=== PATIENT | male | born 1965 | race African-American/Black ===

== ENCOUNTER 2017-11-04 23:40 | Observation (INO) | payer OTHER ==
[2017-11-05] MEDS ORDERED: Ondansetron HCl/PF 4 MG/2 ML Vial ONE (00:05)
[2017-11-05 00:42] LABS: #Lymphocytes 1.3 thou/uL (1.20-3.40); #Monocytes 0.2 thou/uL (0.11-0.59); %Basophils 0.6 % (0.0-1.0); %Eosinophils 0.8 % (0.0-10.0); %Lymphocytes 23.5 % (21.0-51.0); %Neutrophils 71.1 % (42.0-75.0); Hemoglobin 16.8 g/dL (14.0-18.0); Mean Corpuscular HGB CONC 31.7 g/dL (32.0-36.0); Mean Corpuscular Hemoglobin 29.3 pg (27.0-31.0); Mean Corpuscular Volume 92.4 fl (80.0-94.0); Mean Platelet Volume 8.3 fL (7.4-10.4); Platelet Count 189 thou/uL (130-400); RBC Distribution Width 14.1 % (11.5-14.5); Red Blood Cell (RBC) Count 5.73 mill/uL (4.70-6.10); White Blood Cell (WBC) Count 5.6 thou/uL (4.8-10.8)
[2017-11-05 00:48] LABS: Prothrombin Time 12.9 SEC (12.0-14.7)
[2017-11-05 00:49] LABS: PTT 28.9 SEC (22.9-36.1)
[2017-11-05 01:04] LABS: ALT (SGPT) 29 U/L (8-55); AST (SGOT) 21 U/L (5-34); Albumin 4.1 g/dL (3.5-5.0); Alkaline Phosphatase 54 U/L (40-150); Anion Gap 13 mmol/L (10-20); BUN (Urea Nitrogen) 13 mg/dL (8.9-20.6); Bilirubin, Total 0.8 mg/dL (0.2-1.2); CK (CPK) 325 U/L (30-200); Calc. Creatinine Clearance 0 mL/min (70-130); Calcium 9.4 mg/dL (7.8-10.44); Carbon Dioxide 30 mmol/L (22-29); Chloride 102 mmol/L (98-107); Estimated GFR-MDRD 63; Globulin 3.5 g/dL (2.4-3.5); Glucose 124 mg/dL (70-105); Potassium 3.5 mmol/L (3.5-5.1); Protein, Total 7.6 g/dL (6.0-8.3); Sodium 141 mmol/L (136-145)
[2017-11-05 01:06] LABS: CKMB 4.3 ng/mL (0-6.6); Troponin I 0.095 ng/mL (< 0.028)
[2017-11-05] MEDS ORDERED: Atorvastatin Calcium 20 MG TAB PO SCH ×2 (03:21→21:00)
[2017-11-05] MEDS ORDERED: Ondansetron ODT 4 MG TAB PO PRN (03:21)
[2017-11-05] MEDS ORDERED: hydrALAZINE 20 MG/ML VIAL SLOW IVP PRN (03:21)
[2017-11-05] MEDS ORDERED: HYDROcodone/Acetaminophen 5/325 mg Tablet PO PRN (03:21)
[2017-11-05] MEDS ORDERED: Acetaminophen 325 MG TAB PO PRN (03:21)
[2017-11-05] MEDS ORDERED: Enoxaparin Sodium 40 MG/0.4 ML SYRINGE SC SCH ×3 (03:21→21:00)
[2017-11-05 04:56] LABS: Cardiac Risk 6.1 (Less than 4.5)
[2017-11-05 05:01] LABS: CKMB 4.7 ng/mL (0-6.6); Troponin I 0.103 ng/mL (< 0.028)
[2017-11-05 05:11] VITALS: BMI 49.9
--- NOTE | 2017-11-05 05:33 | HP ---
DATE OF ADMISSION: 11/05/2017 TIME OF SERVICE: 0315 hours PRIMARY CARE PHYSICIAN: Mart[facility]nez in [place]. CHIEF COMPLAINT: Right-sided weakness and chest pain. HISTORY OF PRESENT ILLNESS: Mr. Alston is a 51-year-old -[place] male with history of severe obesity, hypertension, BPH, gout, CHF and possible atrial fibrillation and obstructive sleep apnea. The patient was in normal state of health until about 9:00 on 11/04/2017. At that time, he developed right arm and leg weakness. He had gotten up to try to walk across his house and then extremely dif ficult to get around. He said they were numb and would not move right in the emergency department. By arrival around 2300, the symptoms had resolved. In passing, he also said he has some chest pain that he describes as fullness that was relieved by be lching present around the same time. When he belch, it went away and came back several hours later a nd bounced again, it resolved. He has no weakness, numbness, tingling or difficulty walking now, he has no further chest pain or discomfort. Review of his chart does show he had an echocardiogram in 08/2016 that showed grade 1/3 diastolic dys function, EF 40-45% and inferior and inferolateral wall hypokinesis. PAST MEDICAL HISTORY: 1. Hypertension. 2. Possible atrial fibrillation. 3. BPH. 4. Gout. 5. CHF 6. Severe obesity. 7. Obstructive sleep apnea. PAST SURGICAL HISTORY: Include renal stone removal in 08/2016. HOME MEDICATIONS: 1. Coreg 25 mg p.o. b.i.d. 2. Amlodipine 5 mg p.o. b.i.d. 3. Flomax 0.4 mg p.o. at bedtime. 4. Allopurinol 300 mg daily. 5. Digoxin 0.125 mg p.o. daily. He said he takes it for blood pressure. ALLERGIES: NKDA. FAMILY HISTORY: Negative for premature coronary artery disease. His sister had heart problems under the age of 50. His mom had a heart attack in her 60s. SOCIAL HISTORY: Negative for habits x3. REVIEW OF SYSTEMS: A 10-point review of systems was performed and was negative for all systems excep t as stated as per HPI. PHYSICAL EXAMINATION: VITAL SIGNS: Temperature 99.0, pulse 86, blood pressure 131/91, respiratory 20, satting 97% on room air. Weight is 370 pounds. GENERAL: He is awake. He is alert. He is oriented x3. He is a well-developed, well-nourished tyler rely obese -[place] male appears to be in no acute distress. HEENT: Normocephalic and atraumatic. His pupils are equal, round, react to light bilaterally. Muco us membranes are moist. There is no visible lesion, no thrush. NECK: Supple, with no lymphadenopathy, no JVD, no thyromegaly. Normal carotid upstroke. I do not a ppreciate any bruits. LUNGS: Clear. He has no wheezes, no rales, or no rhonchi. Good air movement. Symmetric chest excu rsion. CARDIOVASCULAR: He has a normal S1, S2. No S3, S4. No audible murmurs. ABDOMEN: Soft, is obese. It is nontender. I cannot palpate his internal organs. EXTREMITIES: Show no signs of clubbing. He has got nonpitting edema of both lower extremities up to about the level of the knee. He has got 1+ dorsalis pedis and posterior tibial pulses bilaterally. SKIN: Otherwise, warm, moist, and well perfused. He has no other rashes or lesions. MUSCULOSKELETAL: Normal to inspection. No inflamed joints. No palpable effusions. NEUROLOGIC: Cranial nerves II through XII grossly intact. He has 5/5 strength in all 4 extremities. Sensation is intact. He has no focal deficits. His speech is normal. LABORATORY DATA: Sodium 141, potassium 3.5, chloride 102, bicarbonate 30, BUN 13, creatinine 1.43, g lucose 124, calcium 9.4. Liver functions are completely within normal limits. CBC showed a white co unt of 5.6, hemoglobin 16.8, hematocrit 53.0 and platelet count was 189,000. CK total was 325, CK-MB 4.3, troponin I indeterminate at 0.095. INR is 1.0 and BNP was slightly elevated at 158. RADIOGRAPHIC STUDIES: CT scan of the brain without contrast is negative for acute intracranial patho logy and chest x-ray showed no acute intrathoracic pathology. ASSESSMENT AND PLAN: 1. Transient ischemic attack. The patient had weakness and numbness to the right upper and right lo wer extremity that resolved spontaneously about 2 hours after started. We will place in observation, I did attempt to order an MRI/MRA, however, due to his weight, he is unable to get an MRI here. We will do a CT angiogram and perfusion study in the morning when the routine gets in. The patient will get a fasting lipid profile. I have started him on full aspirin daily and atorvastatin, and I have asked Dr. Up, Neurology to evaluate. PT, OT and ST consults have been entered. There does not trudy ear to have any difficulties at present. 2. Hypertension. Continue his home medications. We will add p.r.n. labetalol as needed. 3. Gout, on allopurinol. 4. Congestive heart failure, chronic combined diastolic and systolic, without acute exacerbation. 5. Severe obesity. 6. Obstructive sleep apnea: The patient does not know CPAP settings. 7. BPH, on Flomax. 8. Possible atrial fibrillation: The patient does not have any recollection of irregular rhythm or atrial fibrillation, but he is on Digoxin 0.125 mg daily. We have to review his chart. 9. History of nephrolithiasis, not active at present.
[2017-11-05] MEDS: Nitroglycerin 2% Ointment 1 INCH/1 GM Packet TOP SCH ×2 (06:14→14:14)
--- NOTE | 2017-11-05 06:56 | CT ---
HEAD CT WITHOUT CONTRAST: 11/05/2017 HISTORY: Right-sided weakness with headache. COMPARISON: None. TECHNIQUE: Serial axial CT imaging at 5 mm intervals, from the vertex through the skull base, without contrast. FINDINGS: The imaged paranasal sinuses/mastoid air cells are well aerated. No displaced calvarial fracture. N o intracranial hemorrhage, midline shift, mass effect, or ventricular enlargement. IMPRESSION: No intracranial hemorrhage or displaced calvarial fracture. POS: DARNELL
[2017-11-05 07:38] LABS: CKMB 4.4 ng/mL (0-6.6); Troponin I 0.075 ng/mL (< 0.028)
--- NOTE | 2017-11-05 07:44 | RAD ---
CHEST 1 VIEW: Date: HISTORY: Weakness. Dyspnea. COMPARISON: 11/20/16. FINDINGS: Cardiac silhouette is magnified and enlarged. Pulmonary vasculature is now engorged with patchy bilat eral perihilar and bibasilar infiltrates. Mediastinum is midline. No lobar consolidation or pneumotho rax are apparent. personnel monitor leads overlie the chest. IMPRESSION: Cardiomegaly. Pulmonary vascular congestion. POS: TPC
[2017-11-05 08:17] LABS: CKMB 4.5 ng/mL (0-6.6); Troponin I 0.085 ng/mL (< 0.028)
--- NOTE | 2017-11-05 08:56 | ULT ---
CAROTID ULTRASOUND: History: Right lower extremity weakness. Technique: Multiplanar grayscale and color doppler images were obtained in a carotid ultrasound. Spec tral analysis of the doppler waveforms were performed. FINDINGS: No significant plaque is seen in either common or internal carotid artery. The doppler waveforms are normal bilaterally. Peak systolic velocity in the right ICA is 38 cm/sec. Peak systolic velocity in the right CCA is 86 c m/sec. The right ICA/CCA ratio is 0.4. Peak systolic velocity in the left ICA is 49 cm/sec. Peak systolic velocity in the left CCA is 89 cm/ sec. The left ICA/CCA ratio is 0.6. Both vertebral arteries demonstrate antegrade flow without focal stenosis. IMPRESSION: No evidence of hemodynamically significant stenosis. POS: DARNELL
[2017-11-05] MEDS ORDERED: Amlodipine 5 MG TAB PO SCH (09:00)
[2017-11-05] MEDS ORDERED: Digoxin 0.25 MG TAB PO SCH (09:00)
[2017-11-05] MEDS ORDERED: Allopurinol 300 MG TAB PO SCH (09:00)
[2017-11-05] MEDS ORDERED: Tamsulosin HCl 0.4 MG CAP PO SCH (09:00)
[2017-11-05] MEDS ORDERED: Aspirin 325 MG TAB PO SCH (09:00)
[2017-11-05] MEDS ORDERED: FLU VACC QS2017-18 36 mo. & older 0.5 ML SYRINGE IM ONE (09:00)
[2017-11-05] MEDS ORDERED: Famotidine 20 MG TAB PO SCH (09:00)
--- NOTE | 2017-11-05 10:39 | CT ---
CT ANGIOGRAM OF THE HEAD WITH CONTRAST: Date: 11-05-17 History: 51-year-old male with TIA, right upper extremity and right lower extremity weakness, now resolved. Technique: IV contrast bolus injection of 100 ml of Isovue 370. Arterial bolus chasing technique scan from C2 to vertex of skull. Coronal and sagittal 3D MIP reconstructions. FINDINGS: No high grade stenosis or occlusion of anterior and posterior circulation arteries. Bilateral posteri or communicating arteries (PCOM) are present and patent. The imaged resolution is insufficient to det ermine whether or not there is an anterior communicating artery. No aneurysm is identified. There is diffuse thickening of the skin visualized in the head and upper neck. IMPRESSION: 1. No major pathology of the [place] of [place] identified. 2. Diffuse skin thickening. POS: DARNELL
[2017-11-05] MEDS: Carvedilol 25 MG TAB PO SCH ×2 (11:41→16:50)
--- NOTE | 2017-11-05 11:58 | PDOC.EVN ---
Event Note - Event Note Event Note: pT ADMITTED EARLY THIS MORNING FOR RT SIDE WEAKNESS AND CHETS PAIN CARDIAC ENYZMES Indeterminate. Will consult cardio to evaluate patient Waiting for neuro input CTA no evidence of stenosis Monitor bp closely if ok with consultanst will probably dc patient home case d/w pt & RN
[2017-11-05] MEDS ORDERED: Iopamidol 370 76% 100 ML VIAL ONE (13:33)
--- NOTE | 2017-11-05 17:25 | CON ---
DATE OF CONSULTATION: 11/05/2017 REASON FOR CONSULTATION: TIA. REFERRING PROVIDER: José Miguel Car MD HISTORY OF PRESENT ILLNESS: Mr. Alston is a 51-year-old gentleman who I have seen and evaluated in e past. He has a history of nonischemic cardiomyopathy. He recently presented with right arm and ri ght leg numbness. He states he got up from the couch and had difficulty walking. His symptoms have completely resolved. No chest pain, pressure, shortness of breath, or other associated symptoms. PAST MEDICAL HISTORY: Uncontrolled hypertension, gout, obesity, and obstructive sleep apnea. MEDICATIONS: Coreg, amlodipine, Flomax, and allopurinol. ALLERGIES: None. SOCIAL HISTORY: No tobacco or alcohol use. REVIEW OF SYSTEMS: Ten-point review of systems is reviewed and as above, otherwise negative. PHYSICAL EXAMINATION: GENERAL: Patient is a pleasant male who is in no acute distress. The patient appears his stated age . VITAL SIGNS: Blood pressure 127/81, pulse 91, and respirations 20. NEUROLOGIC: The patient is alert and oriented times 3 with no focal neurologic deficits. HEENT: Sclerae without icterus. Mouth has moist mucous membranes with normal pallor. NECK: No JVD. Carotid upstroke brisk. No bruits bilaterally. LUNGS: Clear to auscultation with unlabored respirations. BACK: No scoliosis or kyphosis. CARDIAC: Regular rate and rhythm with normal S1 and S2. No S3 or S4 noted. No significant rubs, murmurs, thrills, or gallops noted throughout the precordium. PMI is not displaced. There is no parasternal heave. ABDOMEN: Soft, nontender, nondistended. No peritoneal signs present. No hepatosplenomegaly. No abnormal striae. EXTREMITIES: 2+ femoral and 2+ dorsalis pedis pulses. No cyanosis, clubbing, or edema. SKIN: No gross abnormalities. PERTINENT LABORATORY DATA: Hemoglobin 16.8, creatinine 1.43. EKG: Normal sinus rhythm, normal EKG. IMPRESSION: Transient ischemic attack. RECOMMENDATIONS: Mr. Alston does have a history of a nonischemic cardiomyopathy. He also has obstruc tive sleep apnea. Atrial fibrillation is only part of the differential diagnosis. He would likely b enefit from overnight telemetry monitoring and a 3-week event recorder to assess for atrial fibrillat ion. This is the first episode of TIA. Neurology consult has also been summoned. We would also rec ommend an echo with Doppler to assess for cardiac etiology.
--- NOTE | 2017-11-05 18:25 | CON ---
DATE OF CONSULTATION: 11/05/2017 CONSULTING PHYSICIAN: Hospitalist Service. IMPRESSION: 1. Transient ischemic attack with transient right-sided weakness. 2. Hypertension. 3. Obesity. 4. History of congestive heart failure. PLAN: 1. Aspirin 325 per day. 2. Lipitor 20 mg per day. 3. Weight loss and increased exercise. Mr. Alston is a 51-year-old man, who presented with right leg weakness. This came on acutely while he was watching television and he did not have any notable right upper extremity weakness. His th ought that his speech was a bit slurred, and the symptoms lasted about 4 hours. He did not have any associated headache, nausea, vomiting, vertigo, double vision, blurred vision, alteration of consciou sness, chest pain, or shortness of breath. He had a CT of the brain done in the emergency room, whic h was unremarkable for any signs of bleed. CTA did not show any occlusion of the carotids or major c ranial vessels. His lab work was all unremarkable other than a CPK of 325. He has no past history o f similar events. He is followed by Dr. Tobar for a diagnosis of congestive heart failure. He i s not on any anticoagulants and has not been aware of what his ejection fraction is. Dr. Tobar d id see him earlier today and did not make any specific recommendations. PAST MEDICAL HISTORY: As listed above. ALLERGIES: None reported. SOCIAL HISTORY: No tobacco or alcohol use. FAMILY HISTORY: Noncontributory. REVIEW OF SYSTEMS: Otherwise, negative. PHYSICAL EXAMINATION: GENERAL: An overweight middle-aged man in no distress. VITAL SIGNS: Have been stable. He is afebrile. HEENT: Pupils equal and reactive. Conjunctivae clear. Oropharynx clear. NECK: Supple. EXTREMITIES: No cyanosis, clubbing, or edema. NEUROLOGIC: He was alert and cooperative. Speech is fluent and clear. His exam was nonfocal. He c an walk independently. Imaging studies were reviewed. LABORATORY STUDIES: EKG shows sinus rhythm. SUMMARY: This is a 51-year-old man with some transient right-sided weakness suggestive of a small ve ssel TIA. If his ejection fraction is greater than 35%, I think that he can be treated with antiplat elet therapy if by chance that his cardiac output is more suppressed in that, anticoagulation would p robably being more appropriate.
[2017-11-05 18:53] VITALS: BP 131/85; TEMP 98.5
--- NOTE | 2017-11-09 17:05 | EKG ---
Test Reason : CHEST PAIN Blood Pressure : / mmHG Vent. Rate : 092 BPM Atrial Rate : 092 BPM P-R Int : 180 ms QRS Dur : 104 ms QT Int : 396 ms P-R-T Axes : 070 084 029 degrees QTc Int : 489 ms Sinus rhythm with Premature supraventricular complexes Possible Left atrial enlargement Prolonged QT Abnormal ECG Confirmed by AMERICA WESTFALL D.O. ([id number]), scientific publications editor JULISSA PEÑA ([id number]) on 11/09/2017 5:04:31 PM Referred By: Confirmed By:AMERICA WESTFALL D.O.
== END 2017-11-05 19:35 | disposition home or self-care (01) ==
LOC: ERS 23:40 → 2SW 11-05 03:11
PROVIDERS: ADMIT Internal Medicine Infectious Disease; ATTEND Internal Medicine Infectious Disease
DX: G45.9 Transient cerebral ischemic attack, unspecified (principal); R53.1 Weakness; R07.9 Chest pain, unspecified; I11.0 Hypertensive heart disease with heart failure; I50.42 Chronic combined systolic (congestive) and diastolic (congestive) heart failure; I42.8 Other cardiomyopathies; M10.9 Gout, unspecified; N40.0 Benign prostatic hyperplasia without lower urinary tract symptoms; G47.33 Obstructive sleep apnea (adult) (pediatric); E66.01 Morbid (severe) obesity due to excess calories; Z68.43 Body mass index [BMI] 50.0-59.9, adult; Z87.442 Personal history of urinary calculi; Z79.899 Other long term (current) drug therapy
CPT/HCPCS: 36415; 70450; 70496; 71045; 80053; 80061; 82550; 82553; 83880; 84484; 85025; 85610; 85730; 93005; 93306; 93880; 96372; G0378; G8978-GP-CH; G8979-GP-CH; G8980-GP-CH; G8987-GO-CH; G8988-GO-CH; G8989-GO-CH; J1650; J2405

== ENCOUNTER 2017-12-25 19:30 | Outpatient (CLI) | payer OTHER | END 2017-12-25 19:31 | disposition home or self-care (01) | LOC: SLEEPLAB 19:30 | PROVIDERS: ATTEND Nurse Practitioner Family | DX: G47.33 Obstructive sleep apnea (adult) (pediatric) (principal); G47.10 Hypersomnia, unspecified; I11.0 Hypertensive heart disease with heart failure; I50.9 Heart failure, unspecified; E11.9 Type 2 diabetes mellitus without complications; F41.8 Other specified anxiety disorders; K21.9 Gastro-esophageal reflux disease without esophagitis; E66.9 Obesity, unspecified; R06.83 Snoring; R35.1 Nocturia; G45.9 Transient cerebral ischemic attack, unspecified | CPT/HCPCS: 95811 ==

== ENCOUNTER 2018-06-20 14:54 | Outpatient (CLI) | payer OTHER ==
--- NOTE | 2018-06-20 17:18 | CT ---
CT ABDOMEN AND PELVIS NONCONTRAST: 06/20/18 HISTORY: Renal stones. COMPARISON: 03/04/17. FINDINGS: Each renal collecting system, ureter, and urinary bladder are decompressed. Three calcifications are present within nondilated calyces at the inferior pole of the left kidney. The largest measures up to 0.6 cm greatest diameter. No stones on the right. Hyperdense stones are again demonstrated within th e gallbladder lumen. Liver is diffusely hypodense. Lack of contrast limits evaluation for other abnormalities. No evidence of bowel obstruction. IMPRESSION: 1. Nonobstructing left renal calculi measuring up to 0.6 cm greatest diameter. 2. Cholelithiasis. 3. Hepatic steatosis. POS: DARNELL
== END 2018-06-20 14:55 | disposition home or self-care (01) ==
LOC: BICCT 14:54
PROVIDERS: ATTEND Urology
DX: N20.0 Calculus of kidney (principal); E66.9 Obesity, unspecified; K80.20 Calculus of gallbladder without cholecystitis without obstruction; K76.0 Fatty (change of) liver, not elsewhere classified
CPT/HCPCS: 74176

== ENCOUNTER 2019-07-28 15:21 | Outpatient (CLI) | payer OTHER ==
--- NOTE | 2019-07-28 16:01 | CT ---
CT Stone Protocol 07/28/2019 12:00 AM HISTORY: Renal calculi COMPARISON: 06/20/2018. Technique: Multiple contiguous axial CT images are obtained through the abdomen and pelvis without IV contrast. Coronal reformats are provided. FINDINGS: This examination is limited for the evaluation of solid organs and vascular structures due to the lac k of intravenous contrast. Lower Chest: There are linear densities in each lung base stable when compared to the prior exam whic h may related to mild scarring Abdomen: Liver: Diminished attenuation suggesting fatty infiltration. Gallbladder: A 2.2 cm calculus is again seen in the gallbladder lumen. Pancreas: Grossly normal nonenhanced CT appearance. Spleen: Grossly normal nonenhanced CT appearance. Adrenals: Grossly normal nonenhanced CT appearance. Kidneys: Nonobstructing inferior pole left renal calculi are again seen, largest measuring 9 mm. The right kidney is slightly smaller in size compared to the left. There is no hydronephrosis present. Ureters: No ureteral calculus is seen.. Pelvis: Urinary bladder: Incompletely distended but otherwise grossly normal in appearance. Reproductive Organs: No pelvic masses. Lymph Nodes: No enlarged lymph nodes. Bowel: Colonic diverticulosis is present. Loops of small bowel are normal in caliber. Appendix: The appendix is normal in caliber. Peritoneum: No free fluid, free air, or fluid collection. Retroperitoneum: within normal limits. Vessels: Abdominal aorta is normal in caliber.. Abdominal Wall: Small fat-containing umbilical hernia is again noted. Bones: Mild degenerative changes are seen in the spine. IMPRESSION: 1. Stable nonobstructing left renal calculi. 2. Fatty infiltration of the liver. 3. Cholelithiasis.
== END 2019-07-28 15:22 | disposition home or self-care (01) ==
LOC: BICCT 15:21
PROVIDERS: ATTEND Urology
DX: N20.0 Calculus of kidney (principal); N18.9 Chronic kidney disease, unspecified; N40.0 Benign prostatic hyperplasia without lower urinary tract symptoms; K76.0 Fatty (change of) liver, not elsewhere classified; K80.20 Calculus of gallbladder without cholecystitis without obstruction
CPT/HCPCS: 36415; 74176; 80048; 83880

== ENCOUNTER 2019-08-18 08:50 | Outpatient (CLI) | payer OTHER ==
--- NOTE | 2019-08-18 10:21 | CT ---
CT OF THE ABDOMEN AND PELVIS WITH AND WITHOUT IV CONTRAST INDICATION: Renal calculi TECHNIQUE: Noncontrast CT of the abdomen and pelvis was performed. Postcontrast images were obtained in the nephrographic phase and delayed phase. Axial and coronal reformatted images were constructed from the raw data. COMPARISON: CT the abdomen and pelvis without contrast dated July 28, 2019 FINDINGS: ABDOMEN: Lung bases: Mild subsegmental volume loss Liver: Mild fatty liver Gallbladder: Cholelithiasis Pancreas: Normal. Adrenal glands: Normal. Spleen: Normal. Kidneys and ureters: There is a stable 7 mm nonobstructing calculus involving the inferior pole of th e left kidney. There is a new small 5 mm calculus within the inferior pole of the right kidney. There is a mildly hyperdense proteinaceous cyst is seen within the superior pole left kidney measurin g 1.1 cm. There are additional hypodensities within both kidneys that are too small to fully characterize but are likely reflective of additional smaller cysts. The right ureter does not complet star fill distally. The visualized opacified renal collecting segments appear within normal limits. Vasculature: There are mild vascular calcifications seen involving the visualized vasculature. Lymph nodes:No lymphadenopathy. Free fluid in abdomen:No free fluid is evident. PELVIS: Small and large bowel: There are scattered colonic diverticula. Appendix:Normal Bladder: Normal. Rectal and perirectal soft tissues:Normal. Reproductive structures: Prostate is enlarged measuring 6 cm. Free fluid in pelvis: No free fluid is evident. Lymphadenopathy pelvis: No lymphadenopathy is evident. Osseous structures: No acute osseous abnormality. No destructive osteolytic or osteoblastic lesion i s identified. There is scattered degenerative and osteoarthritic changes. Soft tissues:Normal. IMPRESSION: 1. Bilateral nephrolithiasis. 2. Left renal cyst and other tiny bilateral renal hypodensities. 3. No gross urothelial lesion identified.
== END 2019-08-18 08:51 | disposition home or self-care (01) ==
LOC: BICCT 08:50
PROVIDERS: ATTEND Urology
DX: N20.0 Calculus of kidney (principal); R93.5 Abnormal findings on diagnostic imaging of other abdominal regions, including retroperitoneum
CPT/HCPCS: 74178

== ENCOUNTER 2020-10-05 08:50 | Outpatient (CLI) | payer OTHER ==
--- NOTE | 2020-10-05 10:19 | CT ---
CT abdomen and pelvis without and with IV contrast HISTORY: Renal stones. Renal cysts. COMPARISON: 08/18/2019. FINDINGS: Each renal collecting system, ureter, and urinary bladder are decompressed. The tiny nonobs tructing stone at the inferior pole of the right kidney is stable. Calcifications at the inferior pole of the left kidney now measuring up to 1.0 cm greatest length, 0. 9 cm on the prior exam. The tiny calcification at the posterior aspect of the left kidney is stable. At the inferior pole of the left kidney, a 1.9 cm hyperdense focus on the precontrast images likely r esults from hemorrhage into a small cyst seen on the prior exam. There are 1.1 cm cysts at the inferior pole of the right kidney in the lateral cortex of the left kidney that are stable. No hydron ephrosis. Minimal scarring at the left lung base. Hyperdense stone within the gallbladder lumen. No evidence of bowel obstruction or inflammation. Prominent degenerative changes of the lumbar spine, with central canal stenosis most severe at the L3-4 level. IMPRESSION : Slight interval enlargement of the largest calcification at the inferior pole left kidney, 1.0 cm. Ad ditional smaller nonobstructing bilateral renal calculi are stable. Interval development of a small hyperdense cyst at the inferior pole of the left kidney. Other simple cysts are stable. Cholelithiasis.
[2020-10-05] MEDS ORDERED: Iopamidol-370 76% 500 ML 1 ML ONE (14:15)
== END 2020-10-05 08:51 | disposition home or self-care (01) ==
LOC: BICCT 08:50
PROVIDERS: ATTEND Urology
DX: N20.0 Calculus of kidney (principal); N28.1 Cyst of kidney, acquired; K80.20 Calculus of gallbladder without cholecystitis without obstruction; N28.89 Other specified disorders of kidney and ureter
CPT/HCPCS: 74178; Q9967

== ENCOUNTER 2021-04-14 20:01 | Emergency (ER) | payer OTHER ==
[2021-04-14 20:34] LABS: #Eosinphils 0.1 thou/uL (0.0-0.7); #Lymphocytes 1.8 thou/uL (1.20-3.40); #Monocytes 0.5 thou/uL (0.11-0.59); #Neutrophils 4.5 thou/uL (1.40-6.50); %Eosinophils 0.9 % (0.0-10.0); %Lymphocytes 26.5 % (21.0-51.0); %Monocytes 7.1 % (0.0-10.0); %Neutrophils 65.5 % (42.0-75.0); Hemoglobin 16.1 g/dL (14.0-18.0); Mean Corpuscular HGB CONC 32.9 g/dL (32.0-36.0); Mean Corpuscular Hemoglobin 30.5 pg (27.0-31.0); Mean Corpuscular Volume 92.6 fL (78.0-98.0); Mean Platelet Volume 8.5 fL (7.4-10.4); Platelet Count 167 thou/uL (130-400); RBC Distribution Width 13.7 % (11.5-14.5); White Blood Cell (WBC) Count 6.8 thou/uL (4.8-10.8)
[2021-04-14 20:50] LABS: ALT (SGPT) 14 U/L (8-55); AST (SGOT) 17 U/L (5-34); Albumin 4.2 g/dL (3.5-5.0); Alkaline Phosphatase 62 U/L (40-110); Anion Gap 11 mmol/L (10-20); BUN (Urea Nitrogen) 14 mg/dL (8.4-25.7); Bilirubin, Total 0.6 mg/dL (0.2-1.2); Calc. Creatinine Clearance 0 mL/min (70-130); Calcium 9.2 mg/dL (7.8-10.44); Carbon Dioxide 28 mmol/L (22-29); Chloride 107 mmol/L (98-107); Globulin 3.5 g/dL (2.4-3.5); Glucose 78 mg/dL (70-105); Potassium 3.9 mmol/L (3.5-5.1); Protein, Total 7.7 g/dL (6.0-8.3); Sodium 142 mmol/L (136-145)
[2021-04-14] MEDS ORDERED: Boostrix 0.5 ML (Tdap) VIAL ONE (21:05)
== END 2021-04-14 21:30 | disposition home or self-care (01) ==
LOC: ERS 20:01
DX: L03.115 Cellulitis of right lower limb (principal); I11.0 Hypertensive heart disease with heart failure; I50.9 Heart failure, unspecified; Z79.899 Other long term (current) drug therapy
CPT/HCPCS: 36415; 80053; 85025; 85652; 86140; 90471; 90715

== ENCOUNTER 2021-07-07 06:58 | Outpatient (CLI) | payer OTHER ==
[2021-07-07 09:18] LABS: Hemoglobin 16.3 g/dL (13.5-17.5); Mean Corpuscular HGB CONC 32.7 g/dL (32.0-36.0); Mean Corpuscular Hemoglobin 29.1 pg (27.0-33.0); Mean Corpuscular Volume 88.9 fl (81.2-95.1); Platelet Count 184 10x3/uL (150-450); RBC Distribution Width 14.5 % (11.5-14.5); Red Blood Cell (RBC) Count 5.61 10x6/uL (4.32-5.72); White Blood Cell (WBC) Count 5.6 10x3/uL (3.5-10.5)
[2021-07-07 09:28] LABS: INR-International Normal Ratio 0.9; Prothrombin Time 10.4 sec (9.5-12.1)
[2021-07-07 09:29] LABS: Bilirubin Neg (Negative); Blood, Urine 10 (Negative); Clarity Clear (Clear); Glucose, Urine (Dipstick) Normal (Negative); Ketone, Urine Negative (Negative); Leukocyte Negative (Negative); Nitrite Negative (Negative); Protein, Urine (Dipstick) 30 mg/dl (Neg-Trace); Urobilinogen Normal mg/dL (Less than 2)
[2021-07-07 09:38] LABS: Anion Gap 15 mmol/L (10-20); BUN (Urea Nitrogen) 16 mg/dL (8.4-25.7); Calc. Creatinine Clearance 0 mL/min (70-130); Calcium 9.1 mg/dL (7.8-10.44); Carbon Dioxide 23 mmol/L (22-29); Chloride 107 mmol/L (98-107); Glucose 85 mg/dL (70-105); Sodium 141 mmol/L (136-145)
[2021-07-07 10:05] LABS: Bacteria/HPF None Seen HPF (None Seen); RBC/HPF 0-3 HPF (0-3); Squamous Epithelial None Seen HPF (0-3); WBC/HPF 0-3 HPF (0-3)
[2021-07-07 21:08] LABS: SARS-CoV-2 PCR by NAA Not Detected (NotDetected)
== END 2021-07-07 06:59 | disposition home or self-care (01) ==
LOC: LABBT 06:58
PROVIDERS: ATTEND Urology
DX: Z01.818 Encounter for other preprocedural examination (principal); N20.0 Calculus of kidney; Z20.822 Contact with and (suspected) exposure to COVID-19
CPT/HCPCS: 80048; 81001; 85027; 85610; 85730; 87086; 93005; 93010; U0003; U0005

== ENCOUNTER 2021-07-12 06:32 | Day surgery (SDC) | payer OTHER ==
[2021-07-12] MEDS ORDERED: Midazolam HCl 2 mg/2 ml Vial ONE (06:49)
[2021-07-12] MEDS ORDERED: Fentanyl 100 MCG/2 ML VIAL ONE (06:49)
[2021-07-12] MEDS ORDERED: Levofloxacin 500 mg/D5W 100 ml Premix Bag ONE (06:53)
[2021-07-12] MEDS ORDERED: Lidocaine 1% PF 5 ML VIAL ONE (07:00)
[2021-07-12] MEDS ORDERED: Glycopyrrolate 0.2 MG/ML 5 ML SYRINGE ONE (07:00)
[2021-07-12] MEDS ORDERED: PROPOFOL 200 MG/20 ML VIAL ONE (07:00)
[2021-07-12] MEDS ORDERED: Succinylcholine 200 MG/10 ml SYRINGE FS ONE (07:00)
[2021-07-12] MEDS ORDERED: PHENYLEPHRINE-NS 100 MCG/ML 10 ML SYRINGE ONE (07:00)
[2021-07-12] MEDS ORDERED: Ondansetron PF 4 MG/2 ML Vial ONE (07:00)
[2021-07-12] MEDS ORDERED: SUGAMMADEX SODIUM 200 MG/2 ML VIAL ONE (07:22)
[2021-07-12] MEDS ORDERED: Iothalamate Meglumine 60% 50 ML VIAL FS ONE (07:23)
[2021-07-12] MEDS ORDERED: Phenazopyridine HCl 100 MG TAB ONE (09:13)
[2021-07-12] MEDS ORDERED: HYDROcodone/Acetaminophen 5/325 mg Tablet ONE (10:05)
== END 2021-07-12 12:35 | disposition home or self-care (01) ==
LOC: SDC 06:32
PROVIDERS: ATTEND Urology
PROC: 0TC48ZZ Extirpation of Matter from Left Kidney Pelvis, Via Natural or Artificial Opening Endoscopic (ICD-10-PCS; principal; 2021-07-12)
PROC: 0T778DZ Dilation of Left Ureter with Intraluminal Device, Via Natural or Artificial Opening Endoscopic (ICD-10-PCS; principal; 2021-07-12)
DX: N20.0 Calculus of kidney (principal); N28.1 Cyst of kidney, acquired; I13.0 Hypertensive heart and chronic kidney disease with heart failure and stage 1 through stage 4 chronic kidney disease, or unspecified chronic kidney disease; N18.30 Chronic kidney disease, stage 3 unspecified; I50.9 Heart failure, unspecified; G47.33 Obstructive sleep apnea (adult) (pediatric); I48.91 Unspecified atrial fibrillation; M10.9 Gout, unspecified; G62.9 Polyneuropathy, unspecified; E78.2 Mixed hyperlipidemia; E66.01 Morbid (severe) obesity due to excess calories; Z68.42 Body mass index [BMI] 45.0-49.9, adult; Z96.0 Presence of urogenital implants; Z98.890 Other specified postprocedural states; Z93.6 Other artificial openings of urinary tract status; Z79.84 Long term (current) use of oral hypoglycemic drugs; Z79.899 Other long term (current) drug therapy
CPT/HCPCS: 74018; 74420; C2617; J1956; J2250; J2405; J2704; J3010; Q9961-U8

== ENCOUNTER 2021-07-19 12:48 | Outpatient (CLI) | payer OTHER | END 2021-07-19 12:49 | disposition home or self-care (01) | LOC: BICRAD 12:48 | PROVIDERS: ATTEND Urology | DX: N20.0 Calculus of kidney (principal); N28.89 Other specified disorders of kidney and ureter; Z96.0 Presence of urogenital implants | CPT/HCPCS: 74018 ==

== ENCOUNTER 2021-10-18 08:21 | Outpatient (CLI) | payer OTHER | END 2021-10-18 08:22 | disposition home or self-care (01) | LOC: BICULT 08:21 | PROVIDERS: ATTEND Urology | DX: N20.0 Calculus of kidney (principal); N28.1 Cyst of kidney, acquired; M10.9 Gout, unspecified | CPT/HCPCS: 74018; 76770 ==

== ENCOUNTER 2022-06-17 18:35 | Emergency (ER) | payer OTHER ==
[2022-06-17 19:04] LABS: #Eosinphils 0.1 thou/uL (0.0-0.7); #Lymphocytes 1.6 thou/uL (1.20-3.40); #Monocytes 0.3 thou/uL (0.11-0.59); #Neutrophils 2.1 thou/uL (1.40-6.50); %Basophils 0.9 % (0.0-1.0); %Eosinophils 2.5 % (0.0-10.0); %Lymphocytes 39.2 % (21.0-51.0); %Monocytes 6.8 % (0.0-10.0); %Neutrophils 50.5 % (42.0-75.0); Hemoglobin 17.3 g/dL (14.0-18.0); Mean Corpuscular HGB CONC 30.5 g/dL (32.0-36.0); Mean Corpuscular Hemoglobin 29.4 pg (27.0-31.0); Mean Corpuscular Volume 96.3 fL (78.0-98.0); Platelet Count 158 thou/uL (130-400); RBC Distribution Width 13.7 % (11.5-14.5); Red Blood Cell (RBC) Count 5.88 mill/uL (4.70-6.10); White Blood Cell (WBC) Count 4.1 thou/uL (4.8-10.8)
[2022-06-17 19:24] LABS: ALT (SGPT) 19 U/L (8-55); AST (SGOT) 18 U/L (5-34); Albumin 4.1 g/dL (3.5-5.0); Alkaline Phosphatase 57 U/L (40-110); Anion Gap 14 mmol/L (10-20); BUN (Urea Nitrogen) 14 mg/dL (8.4-25.7); Bilirubin, Total 0.5 mg/dL (0.2-1.2); CK (CPK) 238 U/L (30-200); Calc. Creatinine Clearance 0 mL/min (70-130); Calcium 9.3 mg/dL (7.8-10.44); Carbon Dioxide 26 mmol/L (22-29); Chloride 107 mmol/L (98-107); Estimated GFR 65; Globulin 3.6 g/dL (2.4-3.5); Glucose 93 mg/dL (70-105); Potassium 4.2 mmol/L (3.5-5.1); Protein, Total 7.7 g/dL (6.0-8.3); Sodium 143 mmol/L (136-145)
== END 2022-06-17 20:10 | disposition home or self-care (01) ==
LOC: ERS 18:35
DX: R42 Dizziness and giddiness (principal); I16.0 Hypertensive urgency; I11.0 Hypertensive heart disease with heart failure; I50.9 Heart failure, unspecified
CPT/HCPCS: 36415; 70450; 80053; 82550; 85025; 93005

== ENCOUNTER 2022-06-17 21:14 | Emergency (ER) | payer OTHER ==
[2022-06-17 22:13] LABS: #Eosinphils 0.1 thou/uL (0.0-0.7); #Lymphocytes 1.3 thou/uL (1.20-3.40); #Monocytes 0.1 thou/uL (0.11-0.59); #Neutrophils 3.2 thou/uL (1.40-6.50); %Basophils 0.5 % (0.0-1.0); %Eosinophils 1.2 % (0.0-10.0); %Lymphocytes 27.9 % (21.0-51.0); %Monocytes 2.8 % (0.0-10.0); %Neutrophils 67.6 % (42.0-75.0); Hemoglobin 17.5 g/dL (14.0-18.0); Mean Corpuscular HGB CONC 30.8 g/dL (32.0-36.0); Mean Corpuscular Hemoglobin 29.5 pg (27.0-31.0); Mean Corpuscular Volume 95.9 fL (78.0-98.0); Mean Platelet Volume 8.8 fL (7.4-10.4); Platelet Count 153 thou/uL (130-400); RBC Distribution Width 13.6 % (11.5-14.5); Red Blood Cell (RBC) Count 5.91 mill/uL (4.70-6.10); White Blood Cell (WBC) Count 4.7 thou/uL (4.8-10.8)
[2022-06-17 22:32] LABS: ALT (SGPT) 19 U/L (8-55); AST (SGOT) 16 U/L (5-34); Albumin 4.3 g/dL (3.5-5.0); Alkaline Phosphatase 62 U/L (40-110); Anion Gap 16 mmol/L (10-20); BUN (Urea Nitrogen) 15 mg/dL (8.4-25.7); Calc. Creatinine Clearance 0 mL/min (70-130); Calcium 9.3 mg/dL (7.8-10.44); Carbon Dioxide 24 mmol/L (22-29); Chloride 107 mmol/L (98-107); Estimated GFR 64; Globulin 3.3 g/dL (2.4-3.5); Glucose 124 mg/dL (70-105); Potassium 4.2 mmol/L (3.5-5.1); Protein, Total 7.6 g/dL (6.0-8.3); Sodium 143 mmol/L (136-145)
[2022-06-18 01:00] LABS: Bilirubin, Total 0.6 mg/dL (0.2-1.2)
[2022-06-18] MEDS ORDERED: Ondansetron ODT 4 MG TAB ONE (02:00)
[2022-06-18] MEDS ORDERED: Meclizine HCl 25 MG TAB ONE (02:00)
== END 2022-06-18 02:36 | disposition home or self-care (01) ==
LOC: ERS 21:14
DX: R42 Dizziness and giddiness (principal); I11.0 Hypertensive heart disease with heart failure; I50.9 Heart failure, unspecified
CPT/HCPCS: 36415; 70450; 71045; 80053; 82550; 84484; 85025; 93005; 94760; Q0162

== ENCOUNTER 2024-02-22 15:28 | Inpatient (IN) | payer OTHER ==
[~2024-02-22 15:28] MED LIST: Iopamidol-370 76% 500 ML MDV (1 ML CHARGE) ONE
[2024-02-22 16:02] LABS: Actual Bicarbonate (HCO3v) 25.5 mEq/L (22-28); Analyzer IN Cardio ER; Base Excess 1.1 mEq/L (-2.0 to +3.0); Calcium, Ionized (venous) 1.11 mmol/L (1.16-1.32); Chloride (VBG) 101 mmol/L (98-106); Hematocrit-VBG 60 % (42.0-52.0); Hemoglobin (Hb) 20.3 g/dL (13.1-17.2); Potassium (VBG) 3.58 mmol/L (3.70-5.30); Sodium 143 mmol/L (133-146); pH (venous) 7.423 (7.32-7.43)
[2024-02-22 16:10] LABS: #Basophils 0.04 10x3/uL (0.0-0.2); %Basophils 0.5 % (0.0-1.0); %Eosinophils 0.3 % (0.0-10.0); %Lymphocytes 16.6 % (21.0-51.0); %Neutrophils 76.4 % (42.0-75.0); Hematocrit 58.4 % (42.0-52.0); Mean Corpuscular HGB CONC 32.5 g/dL (32.0-36.0); Mean Corpuscular Hemoglobin 29.7 pg (27.0-31.0); Mean Corpuscular Volume 91.4 fL (78.0-98.0); Mean Platelet Volume 10.6 fL (7.4-10.4); Platelet Count 148 10x3/uL (130-400); RBC Distribution Width 14.5 % (11.5-14.5); Red Blood Cell (RBC) Count 6.39 mill/uL (4.70-6.10)
[2024-02-22] MEDS ORDERED: Ipratropium Bromide 2.5 ml Neb ONE (16:14)
[2024-02-22] MEDS ORDERED: Albuterol 2.5 MG (0.5 mL) NEB ONE (16:14)
[2024-02-22 16:23] LABS: ALT (SGPT) 15 U/L (8-55); AST (SGOT) 12 U/L (5-34); Albumin 3.5 g/dL (3.5-5.0); Alkaline Phosphatase 51 U/L (40-110); Anion Gap 16 mmol/L (10-20); BUN (Urea Nitrogen) 14 mg/dL (8.4-25.7); Bilirubin, Total 1.6 mg/dL (0.2-1.2); Calc. Creatinine Clearance 0 mL/min (70-130); Calcium 9.4 mg/dL (7.8-10.44); Carbon Dioxide 24 mmol/L (22-29); Chloride 103 mmol/L (98-107); Estimated GFR 51; Globulin 4.1 g/dL (2.4-3.5); Glucose 119 mg/dL (70-105); Lipase 26 U/L (8-78); Magnesium 1.7 mg/dL (1.6-2.6); Potassium 3.3 mmol/L (3.5-5.1); Protein, Total 7.6 g/dL (6.0-8.3); Sodium 140 mmol/L (136-145)
[2024-02-22 16:29] LABS: Troponin I 0.043 ng/mL (< 0.028)
[2024-02-22] MEDS ORDERED: Morphine 4 MG/ML VIAL ONE ×2 (17:17→23:16)
[2024-02-22] MEDS ORDERED: Ondansetron ODT 4 MG TAB PO PRN (18:42)
[2024-02-22] MEDS ORDERED: Acetaminophen 325 MG TAB PO PRN (18:42)
[2024-02-22] MEDS ORDERED: Dextrose 50% Abboject 50 ML SYRINGE SLOW IVP PRN (19:24)
[2024-02-22] MEDS ORDERED: Dextrose 5% in Water 1,000 ML IV PRN (19:24)
[2024-02-22] MEDS ORDERED: Glucagon 1 MG/ML KIT IM PRN (19:24)
[2024-02-22] MEDS ORDERED: HumaLOG 300 UNITS/3 ML VIAL SC PRN ×2 (19:24)
[2024-02-22] MEDS ORDERED: Heparin 10,000 UNITS/ 10 ML VIAL SLOW IVP SCH (19:30)
[2024-02-22 20:15] LABS: Influenza A by NAA Not Detected (NotDetected); Influenza B by NAA Not Detected (NotDetected); SARS-CoV-2 NAA Rapid Test Not Detected (NotDetected)
[2024-02-22] MEDS ORDERED: Azithromycin 250 MG TAB ONE ×2 (20:30→21:30)
[2024-02-22] MEDS ORDERED: Heparin 25,000 units/D5W 500 ML ONE (20:31)
[2024-02-22] MEDS ORDERED: cefTRIAXone (ROCEPHIN) 2 GM VIAL ONE (20:31)
[2024-02-22] MEDS ORDERED: Sodium Chloride 0.9% 100 ML ONE (20:31)
[2024-02-22] MEDS ORDERED: Famotidine/PF 20 mg/2ml Vial SLOW IVP SCH (21:00)
[2024-02-22] MEDS: Potassium Chloride 20 MEQ TAB PO SCH (21:15)
[2024-02-22] MEDS ORDERED: Potassium Chloride 20 MEQ TAB ONE (21:30)
[2024-02-22] MEDS ORDERED: Ipratropium/Albuterol 3 ML NEB NEB PRN (22:17)
[2024-02-22] MEDS ORDERED: Heparin 5,000 UNITS/ML VIAL ONE (22:27)
[2024-02-22] MEDS: Morphine 4 MG/ML VIAL SLOW IVP SCH (23:22)
[2024-02-23 04:51] LABS: #Basophils Less than 0.03 10x3/uL (0.0-0.2); #Eosinphils Less than 0.03 10x3/uL (0.0-0.7); %Basophils 0.1 % (0.0-1.0); %Eosinophils 0.1 % (0.0-10.0); %Lymphocytes 16.7 % (21.0-51.0); %Monocytes 7.3 % (0.0-10.0); %Neutrophils 75.4 % (42.0-75.0); Hematocrit 55.9 % (42.0-52.0); Mean Corpuscular HGB CONC 32.2 g/dL (32.0-36.0); Mean Corpuscular Hemoglobin 29.2 pg (27.0-31.0); Mean Corpuscular Volume 90.7 fL (78.0-98.0); Mean Platelet Volume 10.1 fL (7.4-10.4); Platelet Count 128 10x3/uL (130-400); RBC Distribution Width 14.4 % (11.5-14.5); Red Blood Cell (RBC) Count 6.16 mill/uL (4.70-6.10)
[2024-02-23] MEDS ORDERED: Morphine 2 MG/ML VIAL ONE (05:01)
[2024-02-23 05:14] LABS: ALT (SGPT) 13 U/L (8-55); AST (SGOT) 12 U/L (5-34); Albumin 3.3 g/dL (3.5-5.0); Alkaline Phosphatase 48 U/L (40-110); Anion Gap 18 mmol/L (10-20); BUN (Urea Nitrogen) 17 mg/dL (8.4-25.7); Bilirubin, Total 1.1 mg/dL (0.2-1.2); Calc. Creatinine Clearance 117 mL/min (70-130); Calcium 9.1 mg/dL (7.8-10.44); Carbon Dioxide 23 mmol/L (22-29); Chloride 100 mmol/L (98-107); Estimated GFR 48; Globulin 4.1 g/dL (2.4-3.5); Glucose 138 mg/dL (70-105); Potassium 3.6 mmol/L (3.5-5.1); Protein, Total 7.4 g/dL (6.0-8.3); Sodium 137 mmol/L (136-145)
[2024-02-23] MEDS: Morphine 4 MG/ML VIAL SLOW IVP PRN (05:18)
[2024-02-23] MEDS ORDERED: Morphine 4 MG/ML VIAL SLOW IVP PRN (06:03)
[2024-02-23] MEDS: HYDROcodone/Acetaminophen 5/325 mg Tablet PO PRN (06:15)
[2024-02-23] MEDS ORDERED: HYDROcodone/Acetaminophen 5/325 mg Tablet ONE ×2 (06:16→11:44)
[2024-02-23 08:21] LABS: Bacteria/HPF None Seen HPF (None Seen); Bilirubin Negative (Negative); Blood, Urine 1+ (Negative); CAUTI Indications for Culture Dysuria,urgency,freq; Clarity Clear (Clear); Glucose, Urine (Dipstick) Greater than 1000 mg/dL (Negative); Ketone, Urine Negative (Negative); Leukocyte Negative Leu/uL (Negative); Nitrite Negative (Negative); Protein, Urine (Dipstick) 30 mg/dL (Neg-Trace); Specific Gravity, Urine 1.034 (1.002-1.036); Squamous Epithelial 0-3 HPF (0-3); Urobilinogen Normal mg/dL (Less than 2); WBC/HPF 0-3 HPF (0-3); pH, Urine 5.5 (5.0-9.0)
[2024-02-23 08:23] LABS: Urine Culture Reflex No No
[2024-02-23] MEDS ORDERED: Heparin 25,000 units/D5W 500 ML ONE (10:17)
[2024-02-23] MEDS: Heparin 25,000 units/D5W 500 ML IVPB SCH (10:21)
[2024-02-23] MEDS ORDERED: oxyCODONE 5 MG TAB PO PRN (15:37)
[2024-02-23 16:09] LABS: Troponin I 0.149 ng/mL (< 0.028)
[2024-02-23] MEDS: Ondansetron PF 4 MG/2 ML Vial IVP PRN (17:00)
[2024-02-23] MEDS: Carvedilol 25 MG TAB PO SCH (17:01)
[2024-02-23 17:18] VITALS: BMI 47.9
[2024-02-23] MEDS: cefTRIAXone\\ROCEPHIN 2 GM in Sodium Chloride 0.9% 100 ML IVPB SCH (20:44)
[2024-02-23] MEDS: Azithromycin 250 MG TAB PO SCH (20:47)
[2024-02-23] MEDS: Acetaminophen 500 MG TAB PO SCH (20:47)
[2024-02-23] MEDS ORDERED: Carvedilol 25 MG TAB PO SCH (21:00)
[2024-02-23] MEDS: Sacubitril 49 MG/Valsartan 51 MG TABLET PO SCH (23:15)
[2024-02-24 06:05] LABS: #Basophils Less than 0.03 10x3/uL (0.0-0.2); %Basophils 0.1 % (0.0-1.0); %Eosinophils 1.4 % (0.0-10.0); %Lymphocytes 17.8 % (21.0-51.0); %Monocytes 6.5 % (0.0-10.0); %Neutrophils 73.7 % (42.0-75.0); Hematocrit 56.1 % (42.0-52.0); Hemoglobin 18.1 g/dL (14.0-18.0); Mean Corpuscular HGB CONC 32.3 g/dL (32.0-36.0); Mean Corpuscular Hemoglobin 29.6 pg (27.0-31.0); Mean Corpuscular Volume 91.8 fL (78.0-98.0); Mean Platelet Volume 10.9 fL (7.4-10.4); Platelet Count 136 10x3/uL (130-400); RBC Distribution Width 14.5 % (11.5-14.5); Red Blood Cell (RBC) Count 6.11 mill/uL (4.70-6.10)
[2024-02-24 06:18] LABS: Anion Gap 18 mmol/L (10-20); BUN (Urea Nitrogen) 29 mg/dL (8.4-25.7); Calc. Creatinine Clearance 79 mL/min (70-130); Calcium 9.1 mg/dL (7.8-10.44); Carbon Dioxide 25 mmol/L (22-29); Chloride 98 mmol/L (98-107); Estimated GFR 31; Glucose 88 mg/dL (70-105); Potassium 3.7 mmol/L (3.5-5.1); Sodium 137 mmol/L (136-145)
[2024-02-24] MEDS: Apixaban 5 MG TAB PO SCH (07:51)
[2024-02-24] MEDS: Empagliflozin 10 MG TAB PO SCH (07:51)
[2024-02-24] MEDS: Tamsulosin HCl 0.4 MG CAP PO SCH (07:51)
[2024-02-24] MEDS: Atorvastatin Calcium 20 MG TAB PO SCH (07:51)
[2024-02-24] MEDS: Allopurinol 300 MG TAB PO SCH (07:52)
[2024-02-24] MEDS ORDERED: Isosorbide Dinitrate 20 MG TAB PO SCH (09:00)
[2024-02-24] MEDS: Lactated Ringer's 1,000 ML IV SCH (13:11)
[2024-02-24 19:33] LABS: Hematocrit 54.3 % (42.0-52.0); Hemoglobin 17.4 g/dL (14.0-18.0); Platelet Count 129 10x3/uL (130-400)
[2024-02-25 04:31] LABS: #Basophils Less than 0.03 10x3/uL (0.0-0.2); %Basophils 0.2 % (0.0-1.0); %Eosinophils 3.1 % (0.0-10.0); %Lymphocytes 19.9 % (21.0-51.0); %Monocytes 8.4 % (0.0-10.0); %Neutrophils 68.1 % (42.0-75.0); Hematocrit 51.4 % (42.0-52.0); Hemoglobin 16.3 g/dL (14.0-18.0); Mean Corpuscular HGB CONC 31.7 g/dL (32.0-36.0); Mean Corpuscular Volume 91.3 fL (78.0-98.0); Mean Platelet Volume 11.1 fL (7.4-10.4); Platelet Count 142 10x3/uL (130-400); Red Blood Cell (RBC) Count 5.63 mill/uL (4.70-6.10)
[2024-02-25 04:45] LABS: Anion Gap 12 mmol/L (10-20); BUN (Urea Nitrogen) 37 mg/dL (8.4-25.7); Calc. Creatinine Clearance 86 mL/min (70-130); Calcium 8.8 mg/dL (7.8-10.44); Carbon Dioxide 30 mmol/L (22-29); Chloride 98 mmol/L (98-107); Estimated GFR 34; Glucose 77 mg/dL (70-105); Potassium 3.4 mmol/L (3.5-5.1); Sodium 137 mmol/L (136-145)
[2024-02-25] MEDS: Potassium Chloride 20 MEQ TAB PO SCH (10:39)
[2024-02-25] MEDS: Potassium Chloride 20 MEQ in Lactated Ringer's 1,000 ML IV SCH (10:39)
[2024-02-25] MEDS: Albumin 25% 25 GM (100 mL) BOT IVPB SCH (16:25)
[2024-02-25] MEDS ORDERED: Sacubitril 49 MG/Valsartan 51 MG TABLET PO SCH (21:00)
[2024-02-26 05:39] LABS: #Basophils Less than 0.03 10x3/uL (0.0-0.2); %Basophils 0.2 % (0.0-1.0); %Eosinophils 1.7 % (0.0-10.0); %Lymphocytes 21.5 % (21.0-51.0); %Monocytes 7.4 % (0.0-10.0); %Neutrophils 68.8 % (42.0-75.0); Hematocrit 49.7 % (42.0-52.0); Mean Corpuscular HGB CONC 32.2 g/dL (32.0-36.0); Mean Corpuscular Hemoglobin 29.4 pg (27.0-31.0); Mean Corpuscular Volume 91.2 fL (78.0-98.0); Platelet Count 138 10x3/uL (130-400); RBC Distribution Width 13.7 % (11.5-14.5); Red Blood Cell (RBC) Count 5.45 mill/uL (4.70-6.10)
[2024-02-26 05:41] LABS: Anion Gap 12 mmol/L (10-20); BUN (Urea Nitrogen) 31 mg/dL (8.4-25.7); Calc. Creatinine Clearance 109 mL/min (70-130); Calcium 9.3 mg/dL (7.8-10.44); Carbon Dioxide 29 mmol/L (22-29); Chloride 102 mmol/L (98-107); Estimated GFR 44; Glucose 81 mg/dL (70-105); Potassium 3.7 mmol/L (3.5-5.1); Sodium 139 mmol/L (136-145)
[2024-02-27] MEDS ORDERED: hydrALAZINE 20 MG/ML VIAL SLOW IVP SCH (01:30)
[2024-02-27 04:48] LABS: #Basophils Less than 0.03 10x3/uL (0.0-0.2); %Basophils 0.3 % (0.0-1.0); %Eosinophils 1.4 % (0.0-10.0); %Lymphocytes 22.5 % (21.0-51.0); %Monocytes 6.6 % (0.0-10.0); Hematocrit 51.8 % (42.0-52.0); Hemoglobin 16.7 g/dL (14.0-18.0); Mean Corpuscular HGB CONC 32.2 g/dL (32.0-36.0); Mean Corpuscular Hemoglobin 29.2 pg (27.0-31.0); Mean Corpuscular Volume 90.6 fL (78.0-98.0); Mean Platelet Volume 10.7 fL (7.4-10.4); Platelet Count 169 10x3/uL (130-400); RBC Distribution Width 13.7 % (11.5-14.5); Red Blood Cell (RBC) Count 5.72 mill/uL (4.70-6.10)
[2024-02-27 05:10] LABS: ALT (SGPT) 14 U/L (8-55); AST (SGOT) 16 U/L (5-34); Albumin 3.1 g/dL (3.5-5.0); Alkaline Phosphatase 47 U/L (40-110); Anion Gap 13 mmol/L (10-20); BUN (Urea Nitrogen) 27 mg/dL (8.4-25.7); Bilirubin, Total 0.6 mg/dL (0.2-1.2); Calc. Creatinine Clearance 123 mL/min (70-130); Calcium 9.4 mg/dL (7.8-10.44); Carbon Dioxide 29 mmol/L (22-29); Chloride 105 mmol/L (98-107); Estimated GFR 51; Glucose 98 mg/dL (70-105); Potassium 3.7 mmol/L (3.5-5.1); Protein, Total 7.1 g/dL (6.0-8.3); Sodium 143 mmol/L (136-145)
[2024-02-27 15:29] VITALS: BP 134/79; TEMP 98.4
[2024-02-27] MEDS ORDERED: Sacubitril 49 MG/Valsartan 51 MG TABLET PO SCH (21:00)
[2024-03-02] MEDS ORDERED: Apixaban 5 MG TAB PO SCH (09:00)
== END 2024-02-27 17:50 | disposition home or self-care (01) | DRG 175 ==
LOC: ERS 15:28 → ERHOLD 18:42 → IMCU/EMU 02-23 12:45 → 2SE 02-25 15:28
PROVIDERS: ADMIT Internal Medicine; ATTEND Internal Medicine
PROC: 5A09357 Assistance with Respiratory Ventilation, Less than 24 Consecutive Hours, Continuous Positive Airway Pressure (ICD-10-PCS; principal; 2024-02-27)
DX: I26.93 Single subsegmental thrombotic pulmonary embolism without acute cor pulmonale (principal); I50.23 Acute on chronic systolic (congestive) heart failure; J18.9 Pneumonia, unspecified organism; J96.01 Acute respiratory failure with hypoxia; N17.9 Acute kidney failure, unspecified; Z68.42 Body mass index [BMI] 45.0-49.9, adult; I82.401 Acute embolism and thrombosis of unspecified deep veins of right lower extremity; I42.8 Other cardiomyopathies; I11.0 Hypertensive heart disease with heart failure; N20.0 Calculus of kidney; K80.20 Calculus of gallbladder without cholecystitis without obstruction; R16.0 Hepatomegaly, not elsewhere classified; N18.9 Chronic kidney disease, unspecified; E11.22 Type 2 diabetes mellitus with diabetic chronic kidney disease; G47.33 Obstructive sleep apnea (adult) (pediatric); E66.01 Morbid (severe) obesity due to excess calories
CPT/HCPCS: 36415; 36416; 36556; 71045; 71275; 74177; 80048; 80053; 81001; 82248; 82805; 83605; 83690; 83735; 83880; 84145; 84484; 85014; 85018; 85025; 85049; 85379; 85730; 93005; 93970; 96374; 96375; J0696; J1644; J1815; J2270; J2272; J2405; J3480; J3490; J7120; J7611; P9047; Q9967

== ENCOUNTER 2025-07-16 09:46 | Outpatient (CLI) | payer MEDICAID | END 2025-07-16 09:47 | disposition home or self-care (01) | LOC: ULT 09:46 | PROVIDERS: ATTEND Nurse Practitioner Family | DX: R31.29 Other microscopic hematuria (principal); N28.1 Cyst of kidney, acquired; N28.89 Other specified disorders of kidney and ureter; R93.422 Abnormal radiologic findings on diagnostic imaging of left kidney | CPT/HCPCS: 76770 ==